=== PATIENT | male | born 1955 | race Caucasian/White ===

== ENCOUNTER 2022-02-19 10:43 | Outpatient (CLI) | payer MEDICARE, SELFPAY ==
--- NOTE | 2022-02-19 11:09 | CT_ITS ---
WS: [id number] LDCT LUNG CANCER SCREENING TECHNIQUE: Noncontrast CT of the chest with coronal and sagittal reformatted images. CLINICAL INFORMATION: HISTORY OF TOBACCO USE, NICOTINE DEPENDENCE CIGARETTES COMPARISON: None. DLP: 85.99 mGy.cm DIvol: Mean CTDIvol: 1.60 (mGy) All CT scans at [facility] use at least one of these dose optimization techniques: automat ed exposure control; mA and/or kV adjustment per patient size (includes targeted exams where dose is matched to clinical indication); or iterative reconstruction. FINDINGS: Advanced chronic emphysematous changes. Bulla formation in the lung apices. Tiny RIGHT pleural effusi on or pleural thickening.Tiny RIGHT anterior and inferior lateral pneumothorax. Fibrosis in the lung apices LEFT greater than RIGHT with pleural plaques LEFT lung apex. Normal calib er thoracic aorta. Aortic calcification. Coronary calcification. No mediastinal or hilar lymphadenopa thy. Adrenal glands are normal. Normal GE junction. CT/CT lung screening [id number] IMPRESSION: Tiny RIGHT anterior and inferior lateral pneumothorax. Recommend in terval follow-up chest CT to confirm stability. LUNG-RADS: 2S-Benign Appearance or Behavior with Significant Findings FOLLOW UP: 12 Month: Continue annual screening with LDCT Notified CHRISTINA Mike at 02/19/2022 4:48 PM.Tiny RIGHT anterior and inferior lateral pneumothorax. Recommend interval follow-up chest CT to confirm stabilit y.
== END 2022-02-19 10:44 | disposition home or self-care (01) ==
PROVIDERS: Visit Provider Nurse Practitioner Family
DX: Z12.2 Encounter for screening for malignant neoplasm of respiratory organs (principal); Z87.891 Personal history of nicotine dependence
CPT/HCPCS: 71271

== ENCOUNTER 2022-03-04 11:59 | Outpatient (CLI) | payer MEDICARE, SELFPAY ==
--- NOTE | 2022-03-04 12:20 | CT_ITS ---
WS: [id number] CT CHEST WITHOUT INTRAVENOUS CONTRAST HISTORY: Abnormal CT 02/19/2022. Follow-up pneumothorax. TECHNIQUE: Contiguous 5 mm axial imaging performed on the thorax. Coronal and sagittal reformats are submitted. All CT scans at [facility] use at least one of these dose optimization techniques: automated exposure control; mA and/or kV adjustment per patient size (includes targeted exams where dose is matched to clinical indication); or iterative reconstruction. CONTRAST: None DLP: 416.91 mGy.cm COMPARISON: 02/19/2022 Lungs and central airway: Lungs are hyperexpanded with emphysema. Paraseptal and centrilobular emphys eneida. Large bullae at the apices. No pneumonia or mass. Previously described pneumothorax on the RIGHT has resolved. Pleura: Normal. No pleural effusion. Heart and pericardium: Normal size heart with no pericardial effusion. Mediastinum and matteo: No mediastinum or hilar adenopathy. Vessels: Mild atherosclerosis aorta. No aneurysm. Normal size pulmonary artery. Chest wall and lower neck: No soft tissue masses. Upper abdomen: Small hiatal hernia. Osseous structures: No destructive process. CT/CT chest wo con [id number] IMPRESSION: 1. Interval complete resolution of the previously described right-sided pneumo thorax. 2. Centrilobular and paraseptal emphysema.
== END 2022-03-04 12:00 | disposition home or self-care (01) ==
PROVIDERS: Visit Provider Nurse Practitioner Family
DX: R93.89 Abnormal findings on diagnostic imaging of other specified body structures (principal); J43.2 Centrilobular emphysema
CPT/HCPCS: 71250

== ENCOUNTER 2024-05-17 10:23 | Outpatient (CLI) | payer MEDICARE, SELFPAY ==
--- NOTE | 2024-05-17 10:34 | US_ITS ---
WS: [id number] RIGHT UPPER QUADRANT ULTRASOUND HISTORY: ELEVATED LFT'S COMPARISON: None available. Liver: 15.8 cm in length. Mild coarse echotexture. No mass. Portal Vein: Normal hepatopetal flow with monophasic waveform. Gallbladder: Normally distended gallbladder with nonshadowing intraluminal material. There is no increased vascularity. Suspect this is probably gallbladder sludge. CBD: 0.4 cm Pancreas: Not visualized. Right kidney: 10.4 cm in length. Normal size and echogenicity. No hydronephrosis or mass. Aorta and IVC: Unremarkable abdominal aorta and IVC. No ascites. US/US abdomen limited [id number] IMPRESSION: 1. Abnormal gallbladder. No stones are identified. Nonvascular foci within the gallbladder. Probably representing sludge. May be due to prolonged fasting. Re commend 6-8 with gallbladder ultrasound follow-up to ensure the sludge resolves and there is no underlying stone. 2. No intrahepatic duct dilatation. 3. Mild hepatic steatosis.
== END 2024-05-17 10:24 | disposition home or self-care (01) ==
PROVIDERS: PCP Nurse Practitioner Family; Visit Provider Nurse Practitioner Family
DX: R79.89 Other specified abnormal findings of blood chemistry (principal); R93.3 Abnormal findings on diagnostic imaging of other parts of digestive tract; K76.0 Fatty (change of) liver, not elsewhere classified
CPT/HCPCS: 76705